=== PATIENT | male | born 1955 | race Hispanic/Latino ===

== ENCOUNTER 2017-01-21 14:31 | Outpatient (CLI) | payer MEDICARE, OTHER ==
[2017-01-21] MEDS ORDERED: PROVENTIL IH ONE (14:46)
[2017-01-21 16:42] LABS: ISTAT Base Excess -1; ISTAT HCO3 24.2; ISTAT PCO2 40.3 (35-45); ISTAT PH 7.387 (7.35-7.45); ISTAT PO2 55 (80-105); ISTAT SO2 88; ISTAT TCO2 25
--- NOTE | 2017-01-22 07:47 | XRay Report ---
CHEST XRAY, 2 VIEWS: History: Short of breath, cough. Findings: There is mild diffuse interstitial coarsening. The lungs are hyperexpanded but clear. No infiltrate, pleural fluid or pneumothorax is detected. The cardiac silhouette and pulmonary vasculature are within normal limits for technique. The bony thorax is unremarkable. IMPRESSION: Changes consistent with mild COPD. No acute cardiopulmonary process.
== END 2017-01-21 14:32 | disposition home or self-care (01) ==
LOC: PF 14:31
PROVIDERS: ATTEND Internal Medicine
DX: J44.9 Chronic obstructive pulmonary disease, unspecified (principal)
CPT/HCPCS: 71020; 82803; 94060; 94640; 94726; 94729